=== PATIENT | male | born 1995 | race Caucasian/White ===

== ENCOUNTER 2018-04-13 10:38 | Observation (INO) | payer BC ==
[2018-04-12 10:53] VITALS: BMI 25.0
[2018-04-13] MEDS ORDERED: CEFAZOLIN 2 GM/50 ML BAG ONE (11:52)
[2018-04-13] MEDS ORDERED: Sodium Chloride 0.9% 20 ML ONE (11:53)
[2018-04-13 12:13] LABS: #Basophils 0.1 thou/uL (0.0-0.2); #Eosinphils 0.3 thou/uL (0.0-0.7); #Lymphocytes 2.2 thou/uL (1.20-3.40); #Monocytes 0.6 thou/uL (0.11-0.59); #Neutrophils 2.4 thou/uL (1.40-6.50); %Basophils 1.3 % (0.0-1.0); %Eosinophils 4.6 % (0.0-10.0); %Lymphocytes 40.5 % (21.0-51.0); %Monocytes 10.1 % (0.0-10.0); %Neutrophils 43.4 % (42.0-75.0); Hemoglobin 15.3 g/dL (14.0-18.0); Mean Corpuscular HGB CONC 34.3 g/dL (32.0-36.0); Mean Corpuscular Hemoglobin 29.4 pg (27.0-31.0); Mean Corpuscular Volume 85.8 fL (78.0-98.0); Mean Platelet Volume 6.3 fL (7.4-10.4); Platelet Count 324 thou/uL (130-400); RBC Distribution Width 12.2 % (11.5-14.5); Red Blood Cell (RBC) Count 5.21 mill/uL (4.70-6.10); White Blood Cell (WBC) Count 5.5 thou/uL (4.8-10.8)
[2018-04-13] MEDS ORDERED: Midazolam HCl 2 mg/2 ml Vial ONE (12:17)
[2018-04-13] MEDS ORDERED: Fentanyl 100 MCG/2 ML VIAL ONE (12:17)
[2018-04-13] MEDS ORDERED: Ropivacaine 0.2% HCl/PF 20 ML ONE (12:48)
[2018-04-13] MEDS ORDERED: Ropivacaine 0.5% HCl/PF (150 MG/30 ML VIAL) ONE (12:48)
[2018-04-13] MEDS ORDERED: Bupivacaine PF 0.5% 30 ML VIAL ONE (12:51)
[2018-04-13] MEDS ORDERED: Heparin 25,000 units/D5W 0 ML ONE (12:51)
[2018-04-13] MEDS ORDERED: Sodium Chloride 0.9% 10 ML ONE (12:51)
[2018-04-13] MEDS ORDERED: Betamet Acet/Betamet Na Ph 30 MG/5 ML VIAL ONE (12:51)
[2018-04-13] MEDS ORDERED: Bacitracin Zinc Ointment 30 gm TUBE ONE (12:51)
[2018-04-13] MEDS ORDERED: Lidocaine 2% PF 5 ML VIAL ONE (12:52)
[2018-04-13] MEDS ORDERED: Fentanyl 100 MCG/2 ML VIAL IV PRN (12:55)
[2018-04-13] MEDS ORDERED: Ropivacaine 0.2% 550 ML 550 ML NERVE BLCK SCH (12:55)
[2018-04-13] MEDS ORDERED: Zolpidem Tartrate 5 MG TAB PO PRN (12:55)
[2018-04-13] MEDS ORDERED: HYDROcodone/Acetaminophen 5/325 mg Tablet PO PRN ×2 (12:55)
[2018-04-13] MEDS ORDERED: Ondansetron PF 4 MG/2 ML Vial IVP PRN (12:55)
[2018-04-13] MEDS ORDERED: Promethazine HCl 25 MG/ML VIAL IM PRN ×2 (12:55→18:36)
[2018-04-13] MEDS ORDERED: traMADol HCl 50 MG TAB PO PRN ×3 (12:55→18:36)
[2018-04-13] MEDS ORDERED: PROPOFOL 20 ML ONE (14:29)
[2018-04-13] MEDS ORDERED: Ketorolac Tromethamine 30 MG/ML VIAL ONE (14:59)
[2018-04-13] MEDS ORDERED: ePHEDrine/0.9% NaCl/PF SYRINGE 50 mg/10 ml ONE (14:59)
[2018-04-13] MEDS ORDERED: PROPOFOL 200 MG/20 ML VIAL ONE (14:59)
[2018-04-13] MEDS ORDERED: Dexamethasone 20 MG/5 ML VIAL ONE (14:59)
[2018-04-13] MEDS ORDERED: Lidocaine 1% PF 5 ML VIAL ONE (14:59)
[2018-04-13] MEDS ORDERED: Ondansetron PF 4 MG/2 ML Vial ONE (14:59)
[2018-04-13] MEDS ORDERED: Morphine 4 MG/ML VIAL SLOW IVP PRN (18:36)
[2018-04-13] MEDS ORDERED: Ondansetron PF 4 MG/2 ML Vial IV PRN (18:36)
[2018-04-13] MEDS ORDERED: Bisacodyl 10 MG SUPP PR PRN (18:36)
[2018-04-13] MEDS ORDERED: Acetaminophen 325 MG TAB PO PRN (18:36)
[2018-04-13] MEDS ORDERED: Milk Of Magnesia 30 ML UDCUP PO PRN (18:36)
[2018-04-13] MEDS ORDERED: RENALLY ADJUST ALL ANTIBIOTICS FS SCH (18:45)
[2018-04-13] MEDS: Vancomycin HCl 1 GM in Premix Bag 1 BAG IVPB SCH (19:59)
[2018-04-13] MEDS: Aspirin 81 mg Enteric Coated Tablet PO SCH (19:59)
--- NOTE | 2018-04-13 23:44 | RAD ---
LEFT WRIST RADIOGRAPH THREE VIEWS 04/13/18 PROVIDED CLINICAL HISTORY: Lunate dislocation. FINDINGS: Multiple spot fluoroscopic images of the left wrist demonstrate operative changes of percutaneous pin adrienne suture anchors associated with the lunate. IMPRESSION: As above. POS: PAPA
[2018-04-14] MEDS: HYDROcodone/Acetaminophen 5/325 mg Tablet PO PRN ×4 (02:54→17:13)
[2018-04-14] MEDS: Ketorolac Tromethamine 30 MG/ML VIAL IVP PRN ×3 (02:54→17:12)
--- NOTE | 2018-04-14 03:58 | OP ---
DATE OF PROCEDURE: 04/13/2018 PREOPERATIVE DIAGNOSES: Complete lunate volar dislocation with volar capsule laceration and scapholunate as well as lunotriquetral ligament tear as well as midcarpal capsule loss. POSTOPERATIVE DIAGNOSES: Complete lunate volar dislocation with volar capsule laceration and scapholunate as well as lunotriquetral ligament tear as well as midcarpal capsule loss. Also evidence of median nerve compression from the 3-week palmarly completely dislocated lunate. PROCEDURES PERFORMED: 1. Open treatment with reduction of volar lunate dislocation. 2. Volar left palmar capsule repair. 3. Scapholunate interosseous membrane reconstruction. 4. Pinning scapholunate joint. 5. Pinning lunate triquetral joint. 6. Pinning lunate capitate joint. 7. C-arm supervision. 8. Lunotriquetral repair. 9. Posterior interosseous nerve neurectomy. 10. Median nerve neuroplasty. INDICATIONS: This patient with over 3-week old complete lunate dislocation, my ankle, did not seek medical attention for almost nine days and then once it was evaluated in our office five days prior to this procedure and it was felt that it was so long and he needed to have this done on a semi-urgent basis. Thus, we scheduled next available operative date for Dr. Maxwell. DESCRIPTION OF PROCEDURE: After successful general LMA technique, the patient had the C-arm brought in to field, could not perform a closed reduction, so we outlined a palmar incision, outlined a zigzag dorsal incision, and he had a complete block with general anesthesia. Márquez had been placed. We then exsanguinated the limb, inflated the tourniquet to 250 mmHg pressure. The patient had first tourniquet inflated to 250 mmHg pressure with well-padded arm tourniquet and here, we were able to make a zigzag incision, visualized the median nerve, and it was draped over the lunate, we took it completely out the capsule and tilted palmarly. We then began a series of maneuvers, flexed and extended the wrist until we were able to irrigate the defect, placed the lunate back in and then we had a completely reduced in frontal sagittal plane. Here, we then closed the space of Aida using a heavy #2 Ethibond on OS-4 suture in a [id number] fashion after debriding the area slightly with tenotomy scissors. Median nerve was preserved, but where it was over-draped, where it was coursing over the lunate, there was some early stippling and erythema. The median nerve neuroplasty included releasing the carpal tunnel, which allowed a room for this to recover. We now had the lunate reduced in no ways that it would go back into the palmar area initially. So, we released the tourniquet after 33 minutes for a total of 20 minutes, obtained hemostasis, closed the subcutaneous tissue with a running 4-0 Monocryl undyed and skin with 4-0 nylon. Attention was now turned to the dorsal incision, where a zigzag incision was made, carried through skin and subcutaneous tissue, and we reached the retinaculum. We made a zigzag incision on the retinacula to recover, spared and included the fact that we visualized and opened the compartment for the extensor pollicis longus but it was spared and not damaged. We then saw the posterior interosseous nerve terminal region. It was very thick, so we performed a posterior interosseous nerve neurectomy and then made an L-shaped capsular flap preserving small capsule over the ulnar aspect of the triquetrum all the way to the radial aspect of the scaphoid. Here, we could visualize the lunate and saw that at the scapholunate articulation, the lunate still had most of the scapholunate ligament except for the very dorsal area, where the injury had gone slightly radial in pattern leaving some scapholunate ligament of 6 mm thick over the very dorsum of the joint on the scaphoid. For this reason, I created appropriate trough, most of which was approximately 2.5 cm long on the scaphoid for placing the lunate, partial scapholunate back in place and then on the radius distally beyond the lunate distally for placing the scaphoid back in place. We then used two large Mini Mitek anchors and one micro anchor along with two heavy sutures on C1 needle, Prolene. We then placed the sutures in place for closure, but did not perform the closure until we were able to pin. Lunate triquetral joint showed similar problems, but primarily it was dorsal and central preserved and the volar part had been closed, so we found that the lunate had lost the ligament and it was still on the triquetrum, so we made a trough, 2 to 3 mm wide and 1 to 2 mm deep, placed the anchors along this edge and then placed the anchors in the remnant of the lunate triquetral ligament to the portion of the midportion of the sagittal plane. We maintained intercalated instability patterns as needed in the frontal sagittal plane and then pinned these joints first. The scaphoid to lunate with it over-reduced and then the lunate triquetrum was over-reduced with two K-wires from scaphoid to lunate and one from triquetrum to the lunate. We also then observed the tilt to be anatomic, but then placed a lunate capitate K-wire, which avoided all other K-wires as well as the anchors in the lunate. We saw anatomic position with no loss of apposition of the repair, we then placed a K-wire from capitate to lunate to prevent translation in this direction and then we closed, released the tourniquet, and obtained hemostasis. We first closed the capsule with interrupted [id number] 4-0 Prolene on RB-1 needle. We then finished the repair of the mid capsule and K-wired the capitate to lunate as well as triquetrum lunate, so the lunate was transfixed in all three directions. We did not cross the radiocarpal joint. We cut the wires below the skin, finished hemostasis, and then C-arm confirmed position. We then left the operating room after all repairs were tied for the scapholunate and lunate triquetrum as well as the capsule closure. Capsule closure was accomplished with a 3-0 Prolene interrupted [id number] pattern not over-tightening the radiocarpal portion. We then obtained hemostasis. The subcutaneous closed with running 4-0 Monocryl dorsal where the palmar side was already closed and had excellent hemostasis. We then completed the closure after cutting the K-wires below the skin for extended 8 to 10-week utilization of immobilization and then begin a sugar-tong splint for protection with thumb spica portion. Splint was applied a long-arm splint in a sugar-tong configuration, and the fingers were pink and the patient left the operating room with the Márquez removed. No evidence of anesthetic or operative complication. Job ID: [id number]
[2018-04-14] MEDS: Aspirin 81 mg Enteric Coated Tablet PO SCH (08:23)
[2018-04-14] MEDS: Vancomycin HCl 1 GM in Premix Bag 1 BAG IVPB SCH (08:23)
[2018-04-14] MEDS ORDERED: TETANUS AND DIPHTHERIA TOX/PF 0.5 ML DISP.SYRIN IM SCH (09:00)
[2018-04-14 15:30] VITALS: BP 155/82; TEMP 98.4
== END 2018-04-14 19:35 | disposition home or self-care (01) ==
LOC: SDC 10:38 → SURG B 19:16
PROVIDERS: ADMIT Orthopaedic Surgery Hand Surgery; ATTEND Orthopaedic Surgery Hand Surgery
PROC: 0RSP0ZZ Reposition Left Wrist Joint, Open Approach (ICD-10-PCS; principal; 2018-04-13)
PROC: 0RQP0ZZ Repair Left Wrist Joint, Open Approach (ICD-10-PCS; 2018-04-13)
PROC: 01N50ZZ Release Median Nerve, Open Approach (ICD-10-PCS; 2018-04-13)
PROC: 01B60ZZ Excision of Radial Nerve, Open Approach (ICD-10-PCS; 2018-04-13)
DX: S63.035A Dislocation of midcarpal joint of left wrist, initial encounter (principal); S66.812A Strain of other specified muscles, fascia and tendons at wrist and hand level, left hand, initial encounter; G56.12 Other lesions of median nerve, left upper limb; F98.8 Other specified behavioral and emotional disorders with onset usually occurring in childhood and adolescence; Z79.899 Other long term (current) drug therapy; Y93.23 Activity, snow (alpine) (downhill) skiing, snowboarding, sledding, tobogganing and snow tubing
CPT/HCPCS: 76000; 85025; 85652; 96365; 96366; 96375; 96376; A4306; C1713; G0378; J0702; J1100; J1644; J1885; J2001; J2250; J2405; J2704; J2795; J3010; J3370; J3490; S0020

== ENCOUNTER 2018-06-03 05:53 | Day surgery (SDC) | payer BC ==
[2018-06-02 14:04] VITALS: BMI 23.7
[2018-06-03] MEDS ORDERED: Fentanyl 100 MCG/2 ML VIAL ONE (06:33)
[2018-06-03] MEDS ORDERED: Bupivacaine PF 0.5% 30 ML VIAL ONE (06:42)
[2018-06-03] MEDS ORDERED: Thrombin 5000 UNITS/5 ML VIAL ONE (06:42)
[2018-06-03] MEDS ORDERED: Bacitracin Zinc Ointment 30 gm TUBE ONE (06:42)
[2018-06-03] MEDS ORDERED: Midazolam HCl 2 mg/2 ml Vial ONE (06:54)
[2018-06-03] MEDS ORDERED: Ketorolac Tromethamine 30 MG/ML VIAL ONE ×2 (06:54→08:57)
--- NOTE | 2018-06-03 09:20 | RAD ---
LEFT WRIST FOUR INTRAOPERATIVE C-ARM IMAGES: INDICATIONS: Hardware removal. COMPARISON: Left wrist radiographs dated 03/30/2018 and 04/13/2018. FINDINGS/IMPRESSION: The previously seen percutaneous pins have been removed. Suture anchors within the scaphoid and esperanza te are stable. The scapholunate and lunatotriquetral alignment appear within normal limits. POS: TPC
[2018-06-03] MEDS ORDERED: PROPOFOL 200 MG/20 ML VIAL ONE (13:41)
[2018-06-03] MEDS ORDERED: Dexamethasone 20 MG/5 ML VIAL ONE (13:41)
[2018-06-03] MEDS ORDERED: diphenhydrAMINE 50 MG/ML VIAL ONE (13:41)
[2018-06-03] MEDS ORDERED: Ondansetron PF 4 MG/2 ML Vial ONE (13:41)
[2018-06-03] MEDS ORDERED: Lidocaine 1% PF 5 ML VIAL ONE (13:41)
--- NOTE | 2018-06-06 09:49 | OP ---
DATE OF PROCEDURE: 06/03/2018 PREOPERATIVE DIAGNOSIS: Wrist painful deep left wires x4 after repair, 10 weeks ago, perilunate dislocation. POSTOPERATIVE DIAGNOSES: Wrist painful deep left wires x4 after repair, 10 weeks ago, perilunate dislocation with intact radiocarpal and intercarpal distances once wires removed and stress was applied. PROCEDURE: Removal of deep implant wires x4 for 3 different locations. SPECIMENS: No specimens. ESTIMATED BLOOD LOSS: 10 mL. TOURNIQUET TIME: Less than or equal to 15 minutes. FINDINGS: Stable radiocarpal and capital lunate and intercarpal joint spaces and alignment. No dorsal intercalated or volar intercalated instability pattern. DESCRIPTION OF PROCEDURE: After successful general endotracheal anesthesia by [facility], the limb was prepped and draped, tourniquet inflated to 250 mmHg pressure after exsanguination of the limb. The patient had the time-out completed, and we exsanguinated the limb, brought the C-arm to the field, inflated the tourniquet to 250 mmHg pressure, easily identified the wires in both superficial location. Once we did this, we were able to make a small 3 to 4 mm incision over 3 different sites; first removed the capital lunate wire, then the triquetral lunate wire, and then the scapholunate wire. The patient underwent fluoroscopy that showed there was no instability or instability static pattern or instability with stress. He then had these areas sutured with interrupted 4-0 nylon. Bulky dressing applied with bacitracin, Adaptic, 4 x 4, and Kerlix, and he left the operating room without complications. Job ID: [id number]
== END 2018-06-03 09:41 | disposition home or self-care (01) ==
LOC: SDC 05:53
PROVIDERS: ATTEND Orthopaedic Surgery Hand Surgery
PROC: 0PPN04Z Removal of Internal Fixation Device from Left Carpal, Open Approach (ICD-10-PCS; principal; 2018-06-03)
DX: T84.84XA Pain due to internal orthopedic prosthetic devices, implants and grafts, initial encounter (principal)
CPT/HCPCS: 76000; J0131; J1885; J2250; J3010; J3490; S0020